=== PATIENT | male | born 1965 | race Caucasian/White ===

== ENCOUNTER 2017-06-08 11:26 | Emergency (ER) | payer SELFPAY ==
[~2017-06-08] VITALS: Ht 175.3 cm; Wt 90.9 kg
[2017-06-08 11:29] VITALS: BP 142/91; PULSE 85; TEMP 98.1
[2017-06-08] MEDS ORDERED: PROAIR HFA0.09 MG/AC IH (11:32)
[2017-06-08] MEDS ORDERED: PEN-VEE K500 MG PO (11:57)
[2017-06-08] MEDS ORDERED: NORCO 325 MG-51 TAB PO (11:57)
== END 2017-06-08 12:06 | disposition home or self-care (01) ==
LOC: COL.ER 11:26
DX: K08.89 Other specified disorders of teeth and supporting structures (principal); Z88.6 Allergy status to analgesic agent

== ENCOUNTER 2017-12-08 23:24 | Emergency (ER) | payer SELFPAY ==
[~2017-12-08] VITALS: Ht 175.3 cm; Wt 90.9 kg
[~2017-12-08 23:24] MED LIST: NORCO 325 MG-51 TAB PO; PEN-VEE K500 MG PO; PROAIR HFA0.09 MG/AC IH
[2017-12-08 23:42] VITALS: PULSE 92; TEMP 98.4
[2017-12-08] MEDS ORDERED: ASPIRIN 81M81 MG/TA2 PO (23:49)
[2017-12-08] MEDS ORDERED: PRILOTC (23:50)
[2017-12-08 23:53] LABS: BASO # 0.1 (0.0-0.2); BASO % 0.9 % (0.0-2.0); EOS # 0.4 (0.0-0.7); EOS % 4.8 % (0-4.0); GRAN # 4.4 (1.4-6.5); GRAN % 50.8 % (42.2-75.2); HEMATOCRIT 42.4 % (42.0-52.0); HEMOGLOBIN 14.6 g/dl (13.5-18.0); LYMPH # 3.3 (1.2-3.4); LYMPH % 37.9 % (20.0-51.0); MEAN CELL VOLUME 92 fl (80.0-100.0); MEAN CORPUSCULAR HEMOGLOBIN 32 pg (27.0-31.0); MEAN CORPUSCULAR HGB CONC 34 g/dl (33.0-37.0); MEAN PLATELET VOLUME 8.8 fl (7.4-10.4); MONO # 0.5 (0.1-0.6); MONO % 5.5 % (1.7-9.3); PLATELET COUNT 356 K/mm3 (130-400); RED BLOOD COUNT 4.61 M/mm3 (4.20-5.60); REDCELL DISTRIBUTION WIDTH-CV 12.8 % (11.5-14.5)
[2017-12-09 00:01] LABS: PROTHROMBIN TIME 11.1 SECONDS (9.7-12.8)
[2017-12-09 00:29] LABS: ALANINE AMINOTRANSFERASE 47 U/L (21-72); ALBUMIN 4.4 gm/dL (3.5-5.0); ALCOHOL(ethanol),MEDICAL 202 mg/dL; ALKALINE PHOSPHATASE 76 U/L (50-136); ANION GAP 16 mmol/L (7-16); AST,SGOT 34 U/L (15-37); BILIRUBIN,TOTAL 0.3 mg/dL (0.0-1.0); BLOOD UREA NITROGEN 11 mg/dL (9-20); CALCIUM 8.8 mg/dL (8.4-10.2); CARBON DIOXIDE 21 mmol/L (22-30); CHLORIDE 102 mmol/L (98-107); CREATININE, serum 1.04 mg/dL (0.66-1.25); GLUCOSE 99 mg/dL (74-106); SODIUM 139 mmol/L (137-145); TOTAL PROTEIN 7.8 gm/dL (6.4-8.2)
[2017-12-09 00:35] LABS: TROPONIN-I < 0.012 ng/mL (0.000-0.034)
[2017-12-09 03:41] VITALS: BP 122/85
== END 2017-12-09 03:50 | disposition home or self-care (01) ==
LOC: COL.ER 23:24
PROVIDERS: Emergency Medicine
DX: R07.89 Other chest pain (principal); F10.129 Alcohol abuse with intoxication, unspecified; J44.9 Chronic obstructive pulmonary disease, unspecified; F17.210 Nicotine dependence, cigarettes, uncomplicated; Z79.82 Long term (current) use of aspirin; Y90.7 Blood alcohol level of 200-239 mg/100 ml

== ENCOUNTER 2018-02-12 10:43 | Emergency (ER) | payer SELFPAY ==
[~2018-02-12] VITALS: Ht 175.3 cm; Wt 93.2 kg
[~2018-02-12 10:43] MED LIST changes: +ASPIRIN 81M81 MG/TA2 PO; +PRILOTC
[2018-02-12 10:50] VITALS: BP 136/82; TEMP 96.6
[2018-02-12] MEDS ORDERED: ZITHROMAX Z PA250 MG PO (11:05)
[2018-02-12] MEDS ORDERED: PREDNISONE20 MG PO (11:05)
[2018-02-12] MEDS ORDERED: PROAIR HFA0.09 MG/AC IH (11:05)
[2018-02-12 11:29] LABS: BASO # 0.1 (0.0-0.2); BASO % 0.9 % (0.0-2.0); EOS # 0.6 (0.0-0.7); EOS % 6.6 % (0-4.0); GRAN # 5.3 (1.4-6.5); GRAN % 56.8 % (42.2-75.2); HEMATOCRIT 40.8 % (42.0-52.0); HEMOGLOBIN 13.9 g/dl (13.5-18.0); LYMPH # 2.8 (1.2-3.4); LYMPH % 29.8 % (20.0-51.0); MEAN CELL VOLUME 94 fl (80.0-100.0); MEAN CORPUSCULAR HEMOGLOBIN 32 pg (27.0-31.0); MEAN CORPUSCULAR HGB CONC 34 g/dl (33.0-37.0); MEAN PLATELET VOLUME 8.8 fl (7.4-10.4); MONO # 0.5 (0.1-0.6); MONO % 5.6 % (1.7-9.3); PLATELET COUNT 315 K/mm3 (130-400); RED BLOOD COUNT 4.33 M/mm3 (4.20-5.60); REDCELL DISTRIBUTION WIDTH-CV 12.7 % (11.5-14.5)
[2018-02-12 11:39] LABS: ALANINE AMINOTRANSFERASE 59 U/L (21-72); ALBUMIN 4.3 gm/dL (3.5-5.0); ALKALINE PHOSPHATASE 70 U/L (50-136); ANION GAP 6 mmol/L (7-16); AST,SGOT 46 U/L (15-37); BILIRUBIN,TOTAL 0.4 mg/dL (0.0-1.0); BLOOD UREA NITROGEN 19 mg/dL (9-20); CARBON DIOXIDE 25 mmol/L (22-30); CHLORIDE 109 mmol/L (98-107); CREATININE, serum 1.13 mg/dL (0.66-1.25); GLUCOSE 107 mg/dL (74-106); POTASSIUM 4.3 mmol/L (3.4-5.0); SODIUM 140 mmol/L (137-145); TOTAL PROTEIN 7.3 gm/dL (6.4-8.2)
[2018-02-12 11:56] LABS: TROPONIN-I < 0.012 ng/mL (0.000-0.034)
[2018-02-12 13:40] VITALS: PULSE 105
== END 2018-02-12 13:40 | disposition home or self-care (01) ==
LOC: COL.ER 10:43
PROVIDERS: Emergency Medicine
DX: J44.1 Chronic obstructive pulmonary disease with (acute) exacerbation (principal); F17.210 Nicotine dependence, cigarettes, uncomplicated; Z79.82 Long term (current) use of aspirin
CPT/HCPCS: A4216; J0696; J2930; J3475

== ENCOUNTER 2018-04-01 20:05 | Inpatient (IN) | payer OTHER ==
[~2018-04-01] VITALS: Ht 175.3 cm; Wt 90.4 kg
[~2018-04-01 20:05] MED LIST changes: +PREDNISONE20 MG PO; +ZITHROMAX Z PA250 MG PO
[2018-04-01 20:51] LABS: BASO # 0.1 (0.0-0.2); BASO % 1.3 % (0.0-2.0); EOS # 0.7 (0.0-0.7); GRAN # 5.7 (1.4-6.5); GRAN % 56.9 % (42.2-75.2); HEMATOCRIT 41.6 % (42.0-52.0); HEMOGLOBIN 14.1 g/dl (13.5-18.0); LYMPH # 2.7 (1.2-3.4); LYMPH % 26.8 % (20.0-51.0); MEAN CELL VOLUME 94 fl (80.0-100.0); MEAN CORPUSCULAR HEMOGLOBIN 32 pg (27.0-31.0); MEAN CORPUSCULAR HGB CONC 34 g/dl (33.0-37.0); MEAN PLATELET VOLUME 8.6 fl (7.4-10.4); MONO # 0.8 (0.1-0.6); MONO % 7.6 % (1.7-9.3); PLATELET COUNT 335 K/mm3 (130-400); RED BLOOD COUNT 4.44 M/mm3 (4.20-5.60); REDCELL DISTRIBUTION WIDTH-CV 12.7 % (11.5-14.5)
[2018-04-01 21:02] LABS: ALBUMIN 4.2 gm/dL (3.5-5.0); BILIRUBIN,TOTAL 0.3 mg/dL (0.0-1.0); CALCIUM 9.2 mg/dL (8.4-10.2); CREATININE, serum 1.19 mg/dL (0.66-1.25); POTASSIUM 4.6 mmol/L (3.4-5.0); TOTAL PROTEIN 7.4 gm/dL (6.4-8.2)
[2018-04-01] MEDS ORDERED: LEVAQUIN 750MG750 M1 PO (22:36)
[2018-04-02] VITALS (8 sets, daily range): BP systolic 113–142; BP diastolic 63–82; PULSE 101–115; TEMP 97.3–98.4
[2018-04-02 08:00] LABS: BASO % 0.1 % (0.0-2.0); EOS % 0.1 % (0-4.0); GRAN # 8.9 (1.4-6.5); GRAN % 86.4 % (42.2-75.2); HEMATOCRIT 38.4 % (42.0-52.0); HEMOGLOBIN 12.7 g/dl (13.5-18.0); LYMPH # 1.1 (1.2-3.4); LYMPH % 10.9 % (20.0-51.0); MEAN CELL VOLUME 94 fl (80.0-100.0); MEAN CORPUSCULAR HEMOGLOBIN 31 pg (27.0-31.0); MEAN CORPUSCULAR HGB CONC 33 g/dl (33.0-37.0); MEAN PLATELET VOLUME 8.8 fl (7.4-10.4); MONO # 0.2 (0.1-0.6); PLATELET COUNT 324 K/mm3 (130-400); RED BLOOD COUNT 4.09 M/mm3 (4.20-5.60); REDCELL DISTRIBUTION WIDTH-CV 12.5 % (11.5-14.5)
[2018-04-02 08:09] LABS: CALCIUM 8.9 mg/dL (8.4-10.2); CREATININE, serum 1.01 mg/dL (0.66-1.25); POTASSIUM 4.6 mmol/L (3.4-5.0)
[2018-04-03 00:11] VITALS: BP 130/66; PULSE 95; TEMP 97.3
[2018-04-03 05:08] VITALS: BP 117/71; PULSE 98; TEMP 97.5
[2018-04-03 07:26] LABS: BASO % 0.1 % (0.0-2.0); EOS % 0.1 % (0-4.0); GRAN # 14.1 (1.4-6.5); GRAN % 88.9 % (42.2-75.2); HEMOGLOBIN 10.9 g/dl (13.5-18.0); LYMPH # 1.2 (1.2-3.4); LYMPH % 7.5 % (20.0-51.0); MEAN CELL VOLUME 97 fl (80.0-100.0); MEAN CORPUSCULAR HEMOGLOBIN 32 pg (27.0-31.0); MEAN CORPUSCULAR HGB CONC 33 g/dl (33.0-37.0); MEAN PLATELET VOLUME 9.2 fl (7.4-10.4); MONO # 0.4 (0.1-0.6); MONO % 2.6 % (1.7-9.3); PLATELET COUNT 304 K/mm3 (130-400); RED BLOOD COUNT 3.44 M/mm3 (4.20-5.60); REDCELL DISTRIBUTION WIDTH-CV 13.1 % (11.5-14.5)
[2018-04-03 07:34] LABS: HEMATOCRIT 33.2 % (42.0-52.0)
[2018-04-03 07:36] LABS: CALCIUM 8.6 mg/dL (8.4-10.2); CREATININE, serum 0.87 mg/dL (0.66-1.25); POTASSIUM 4.5 mmol/L (3.4-5.0)
[2018-04-03 08:09] VITALS: BP 126/74; PULSE 95; TEMP 97.9
[2018-04-03] MEDS ORDERED: PROAIR HFA0.09 MG/AC IH (08:40)
[2018-04-03] MEDS ORDERED: LEVAQUIN 750MG750 M1 PO (08:41)
[2018-04-03] MEDS ORDERED: PREDNISONE10 MG PO (08:42)
[2018-04-04] MEDS ORDERED: CHERATUSSIN AC120 ML PO (11:33)
== END 2018-04-03 12:23 | disposition home or self-care (01) | DRG 194 ==
LOC: COL.ER 20:05 → SURG 23:31 → COL.ER 23:31 → SURG 23:32 → MEDICAL 04-02 18:05 → SURG 04-02 18:05 → MEDICAL 04-03 12:23
PROVIDERS: Hospitalist; Physician Assistant
DX: J18.9 Pneumonia, unspecified organism (principal); J44.0 Chronic obstructive pulmonary disease with (acute) lower respiratory infection; J44.1 Chronic obstructive pulmonary disease with (acute) exacerbation; F17.210 Nicotine dependence, cigarettes, uncomplicated
CPT/HCPCS: 99222-AI; 99239; J1956; J2930; J3475; J7030

== ENCOUNTER 2018-06-13 20:39 | Emergency (ER) | payer OTHER ==
[~2018-06-13] VITALS: Ht 175.3 cm; Wt 93.2 kg
[~2018-06-13 20:39] MED LIST changes: +CHERATUSSIN AC120 ML PO; +LEVAQUIN 750MG750 M1 PO; +PREDNISONE10 MG PO
[2018-06-13 20:47] VITALS: BP 160/75; TEMP 98
[2018-06-13 22:27] LABS: BASO # 0.1 (0.0-0.2); BASO % 1.1 % (0.0-2.0); EOS # 0.5 (0.0-0.7); EOS % 5.7 % (0-4.0); GRAN # 4.1 (1.4-6.5); GRAN % 45.7 % (42.2-75.2); HEMATOCRIT 42.4 % (42.0-52.0); HEMOGLOBIN 14.2 g/dl (13.5-18.0); LYMPH # 3.5 (1.2-3.4); MEAN CELL VOLUME 91 fl (80.0-100.0); MEAN CORPUSCULAR HEMOGLOBIN 31 pg (27.0-31.0); MEAN CORPUSCULAR HGB CONC 34 g/dl (33.0-37.0); MEAN PLATELET VOLUME 8.7 fl (7.4-10.4); MONO # 0.7 (0.1-0.6); MONO % 8.3 % (1.7-9.3); PLATELET COUNT 349 K/mm3 (130-400); RED BLOOD COUNT 4.64 M/mm3 (4.20-5.60)
[2018-06-13 22:57] LABS: BILIRUBIN,TOTAL 0.3 mg/dL (0.0-1.0); CALCIUM 9.3 mg/dL (8.4-10.2); CREATININE, serum 0.99 mg/dL (0.66-1.25); POTASSIUM 4.2 mmol/L (3.4-5.0); TOTAL PROTEIN 7.2 gm/dL (6.4-8.2)
[2018-06-14] MEDS ORDERED: PREDNISONE20 MG PO (00:27)
[2018-06-14] MEDS ORDERED: DOXYCYCLINE 10100 MG PO (00:27)
[2018-06-14 00:50] VITALS: PULSE 85
== END 2018-06-14 00:56 | disposition home or self-care (01) ==
LOC: COL.ER 20:39
PROVIDERS: Emergency Medicine
DX: J44.1 Chronic obstructive pulmonary disease with (acute) exacerbation (principal); F17.210 Nicotine dependence, cigarettes, uncomplicated; Z79.82 Long term (current) use of aspirin
CPT/HCPCS: A4216; J0696; J2405; J2930; J3010; J7030

== ENCOUNTER → 2018-08-18 | Outpatient (CLI) | payer OTHER ==
[~2018-08-18] MED LIST changes: +DOXYCYCLINE 10100 MG PO
== END ==
LOC: COL.PUL 11:16
DX: Z02.71 Encounter for disability determination (principal); F17.210 Nicotine dependence, cigarettes, uncomplicated

== ENCOUNTER 2018-09-09 12:20 | Emergency (ER) | payer OTHER ==
[~2018-09-09] VITALS: Ht 180.3 cm; Wt 90.4 kg
[2018-09-09 12:31] VITALS: TEMP 97.7
[2018-09-09] MEDS ORDERED: PREDNISONE20 MG PO (15:53)
[2018-09-09] MEDS ORDERED: RT ALBUTER2.5 MG/0.5 IH (16:00)
[2018-09-09 16:50] VITALS: BP 135/82; PULSE 84
== END 2018-09-09 16:52 | disposition home or self-care (01) ==
LOC: COL.ER 12:20
DX: J44.1 Chronic obstructive pulmonary disease with (acute) exacerbation (principal); F17.210 Nicotine dependence, cigarettes, uncomplicated; Z88.5 Allergy status to narcotic agent; Z79.82 Long term (current) use of aspirin; Z79.52 Long term (current) use of systemic steroids

== ENCOUNTER → 2018-09-30 | Outpatient (CLI) | payer OTHER ==
[~2018-09-30] MED LIST changes: +RT ALBUTER2.5 MG/0.5 IH
== END ==
LOC: COL.RAD 10:02
DX: Z02.71 Encounter for disability determination (principal); M47.896 Other spondylosis, lumbar region

== ENCOUNTER 2018-10-12 12:57 | Emergency (ER) | payer MEDICAID ==
[~2018-10-12] VITALS: Ht 170.2 cm; Wt 95.5 kg
[2018-10-12] MEDS ORDERED: DOXYCYCLINE 10100 MG PO (15:01)
[2018-10-12] MEDS ORDERED: PROAIR HFA0.09 MG/AC IH (15:02)
[2018-10-12] MEDS ORDERED: NORCO 325 MG-51 TAB PO (15:14)
[2018-10-12 15:15] VITALS: BP 130/83; PULSE 85; TEMP 97.7
== END 2018-10-12 15:15 | disposition home or self-care (01) ==
LOC: COL.ER 12:57
DX: J44.1 Chronic obstructive pulmonary disease with (acute) exacerbation (principal); Z79.82 Long term (current) use of aspirin
CPT/HCPCS: J1100

== ENCOUNTER 2018-10-30 13:55 | Emergency (ER) | payer MEDICAID ==
[~2018-10-30] VITALS: Ht 172.7 cm; Wt 95.5 kg
[2018-10-30 14:15] LABS: BASO # 0.1 (0.0-0.2); EOS # 0.6 (0.0-0.7); GRAN # 4.5 (1.4-6.5); GRAN % 51.4 % (42.2-75.2); HEMOGLOBIN 14.9 g/dl (13.5-18.0); LYMPH # 2.9 (1.2-3.4); LYMPH % 33.1 % (20.0-51.0); MEAN CELL VOLUME 92 fl (80.0-100.0); MEAN CORPUSCULAR HEMOGLOBIN 31 pg (27.0-31.0); MEAN CORPUSCULAR HGB CONC 34 g/dl (33.0-37.0); MEAN PLATELET VOLUME 8.9 fl (7.4-10.4); MONO # 0.6 (0.1-0.6); MONO % 7.4 % (1.7-9.3); PLATELET COUNT 324 K/mm3 (130-400); RED BLOOD COUNT 4.79 M/mm3 (4.20-5.60); REDCELL DISTRIBUTION WIDTH-CV 13.2 % (11.5-14.5)
[2018-10-30 14:29] LABS: ALBUMIN 4.2 gm/dL (3.5-5.0); BILIRUBIN,TOTAL 0.4 mg/dL (0.0-1.0); C-REACTIVE PROTEIN 1.3 mg/dL (0.0-0.9); CALCIUM 9.4 mg/dL (8.4-10.2); CREATININE, serum 1.04 (0.66-1.25); TOTAL PROTEIN 7.4 gm/dL (6.4-8.2)
[2018-10-30] MEDS ORDERED: MEDROL 4MG DOSPA4 MG PO ×2 (16:36)
[2018-10-30] MEDS ORDERED: LEVAQUIN 5500 MG/TA1 PO (17:10)
[2018-10-30] MEDS ORDERED: PREDNISONE20 MG PO (17:10)
[2018-10-30 17:29] VITALS: BP 127/86; PULSE 73; TEMP 98.7
== END 2018-10-30 17:40 | disposition home or self-care (01) ==
LOC: COL.ER 13:55
PROVIDERS: Physician Assistant
DX: J44.1 Chronic obstructive pulmonary disease with (acute) exacerbation (principal); F17.210 Nicotine dependence, cigarettes, uncomplicated; Z90.89 Acquired absence of other organs; Z96.22 Myringotomy tube(s) status; Z79.82 Long term (current) use of aspirin
CPT/HCPCS: J2270; J2405; J7030; J7512

== ENCOUNTER 2019-05-11 00:19 | Emergency (ER) | payer MEDICAID ==
[~2019-05-11] VITALS: Ht 172.7 cm; Wt 95.5 kg
[~2019-05-11 00:19] MED LIST changes: +CHERATUSSIN AC240 ML PO; +CLARITIN 1010 MG/TAB PO; +DALIRESP500 MCG PO; +LEVAQUIN 5500 MG/TA1 PO; +MEDROL 4MG DOSPA4 MG PO; +OMNICEF 300MG300 MG PO; -PRILOTC; +PRILOTC PO; +RT ADVAIR 228 DISKUS IH; +SPIRIVA RE2.5 MCG/Ac IH
[2019-05-11 01:04] LABS: BASO # 0.1 (0.0-0.2); BASO % 0.8 % (0.0-2.0); EOS # 0.3 (0.0-0.7); EOS % 2.4 % (0-4.0); GRAN # 6.6 (1.4-6.5); GRAN % 61.2 % (42.2-75.2); HEMATOCRIT 40.8 % (42.0-52.0); HEMOGLOBIN 14.1 g/dl (13.5-18.0); LYMPH # 3.1 (1.2-3.4); LYMPH % 28.6 % (20.0-51.0); MEAN CELL VOLUME 90 fl (80.0-100.0); MEAN CORPUSCULAR HEMOGLOBIN 31 pg (27.0-31.0); MEAN CORPUSCULAR HGB CONC 35 g/dl (33.0-37.0); MEAN PLATELET VOLUME 8.4 fl (7.4-10.4); MONO # 0.7 (0.1-0.6); MONO % 6.7 % (1.7-9.3); PLATELET COUNT 300 K/mm3 (130-400); RED BLOOD COUNT 4.54 M/mm3 (4.20-5.60); REDCELL DISTRIBUTION WIDTH-CV 12.4 % (11.5-14.5)
[2019-05-11 01:36] LABS: COLLECTION METHOD CLEAN CATCH
[2019-05-11 01:36] LABS: ALBUMIN 4.4 gm/dL (3.5-5.0); BILIRUBIN,TOTAL 0.4 mg/dL (0.0-1.0); CREATININE, serum 1.01 (0.66-1.25); POTASSIUM 3.7 mmol/L (3.4-5.0); TOTAL PROTEIN 7.4 gm/dL (6.4-8.2)
[2019-05-11 01:47] LABS: PH 6 (5-8); SQUAMOUS EPITHELIAL None Seen /hpf; URINE APPEARANCE Clear; URINE BACTERIA Rare /hpf; URINE BILIRUBIN Negative (NEGATIVE); URINE BLOOD Negative (NEGATIVE); URINE COLOR Straw; URINE GLUCOSE Negative (NEGATIVE); URINE KETONE Negative (NEGATIVE); URINE LEUKOCYTE ESTERASE Negative (NEGATIVE); URINE NITRATE Negative (NEGATIVE); URINE PROTEIN(semi-quant) Negative (NEGATIVE); URINE RBC None Seen /hpf; URINE UROBILINOGEN Negative (NEGATIVE)
[2019-05-11 03:05] VITALS: BP 117/80; PULSE 78
== END 2019-05-11 03:05 | disposition home or self-care (01) ==
LOC: COL.ER 00:19
PROVIDERS: Emergency Medicine
DX: R10.31 Right lower quadrant pain (principal); K21.9 Gastro-esophageal reflux disease without esophagitis; J44.9 Chronic obstructive pulmonary disease, unspecified; F17.210 Nicotine dependence, cigarettes, uncomplicated; Z90.49 Acquired absence of other specified parts of digestive tract
CPT/HCPCS: J3010; J7030

== ENCOUNTER → 2022-09-05 | Outpatient (CLI) | payer MEDICAID | LOC: COL.RAD 13:09 | DX: Z12.2 Encounter for screening for malignant neoplasm of respiratory organs (principal); Z87.891 Personal history of nicotine dependence ==